=== PATIENT | female | born 1990 | race Caucasian/White ===

== ENCOUNTER 2019-11-17 02:45 | Observation (INO) ==
[2019-11-17] MEDS ORDERED: ONDANSETRON 4 MG/2 ML VIAL IV ONE (03:04)
[2019-11-17] MEDS ORDERED: SODIUM CHLORIDE 0.9% 1,000 ML IV STA (03:04)
[2019-11-17 04:01] LABS: Basophils # 0.1 10*3/uL (0.0-0.2); Basophils % 0.3 % (0.0-0.8); Eosinophils # 0.1 10*3/uL (0.0-0.87); Eosinophils % 0.4 % (0.00-10.9); Hematocrit 39.4 VOL% (35.7-47.0); Hemoglobin 12.6 GM/DL (12.0-16.0); Immature Granulocytes % 1.6 %; Immature Granulocytes Absolute 0.31 #; Lymphocytes # 4.7 10*3/uL (1.4-4.0); Lymphocytes % 24.6 % (21.3-54.2); Mean Corpuscular Volume 88.5 FL (87-102); Mean Platelet Volume 9.1 FL (9.6-12.0); Monocytes % 6.9 % (1.7-12.7); Neutrophils % 66.2 % (38.7-73.9); Platelet Count 324 T/CUMM (130-400); Red Blood Count 4.45 MC/CUMM (3.8-5.5); Red Cell Distribution Width 15.8 % (9.3-17.3); White Blood Count 19.1 T/CUMM (4-12)
[2019-11-17 04:23] LABS: Alanine Aminotransferase 22 U/L (13-56); Albumin 3.4 G/DL (3.4-5.0); Alkaline Phosphatase 70 U/L (45-117); Aspartate Amino Transferase 14 U/L (0-37); Bilirubin,Total < 0.39 MG/DL (0.2-1.0); Blood Urea Nitrogen 10 MG/DL (7-18); Calcium 8.6 MG/DL (8.5-10.1); Estimated Glom Filtration Rate 96 ML/MIN; Glucose 82 MG/DL (74-106); Osmolality,Calculated 265.2 MOS/KG (273-304); Total Protein 6.5 G/DL (6.4-8.3)
[2019-11-17] MEDS ORDERED: LORazepam 2 MG/1 ML VIAL ONE (04:40)
[2019-11-17] MEDS ORDERED: LORazepam 2 MG/1 ML VIAL IV STA (05:05)
[2019-11-17] MEDS ORDERED: ACETAMINOPHEN 500 MG TABLET PO STA (05:54)
[2019-11-17 06:39] LABS: Apearance,Urine CLEAR (Clear); Bilirubin,Urine Negative (Negative); Blood, Urine Negative (Negative); Glucose,Urine (UA) Negative (Negative); Ketones,Urine Negative (Negative); Mucus,Urine Occasional /LPF (Occasional); Nitrite,Urine Negative (Negative); Protein,Urine Negative; RBC,Urine <1 /HPF (0-4); Urine Color Yellow (Yellow); Urine Specific Gravity 1.016 (1.001-1.035); Urine Urobilinogen < 2.0 EU/DL (0.2-1.0); WBC,Urine 1 /HPF (0-6)
[2019-11-17] MEDS ORDERED: ONDANSETRON 4 MG/2 ML VIAL IV PRN (08:29)
[2019-11-17] MEDS ORDERED: LORazepam 2 MG/1 ML VIAL IV PRN (08:34)
[2019-11-17] MEDS ORDERED: PANTOPRAZOLE 40 MG TABLET PO SCH (09:00)
[2019-11-17] MEDS: DULoxetine 30 MG CAPSULE PO SCH (10:00)
[2019-11-17] MEDS: ENOXAPARIN 40 MG/0.4 ML SYRINGE SUBCUT SCH (10:00)
[2019-11-17] MEDS: lamoTRIgine 25 MG TABLET PO SCH (10:01)
[2019-11-17] MEDS: SUCRALFATE 1 GM TABLET PO SCH ×4 (10:01→20:06)
[2019-11-17] MEDS: FLUTICASONE 50 MCG NASAL SPRAY 16 GM BOTTLE BOTH NARES SCH (10:02)
[2019-11-17] MEDS: DOCUSATE SODIUM 100 MG CAPSULE PO SCH ×2 (10:02→20:06)
[2019-11-17] MEDS: SODIUM CHLORIDE 0.9% 1,000 ML IV SCH ×2 (10:02→17:09)
[2019-11-17] MEDS: DIVALPROEX 500 MG TABLET PO SCH ×3 (10:02→20:05)
[2019-11-17] MEDS ORDERED: ALBUTEROL 2.5 MG/3 ML NEB RESP TX PRN (13:00)
[2019-11-17] MEDS: PANTOPRAZOLE 40 MG TABLET PO SCH (20:06)
[2019-11-17] MEDS ORDERED: OLANZapine 5 MG TABLET PO SCH (21:00)
[2019-11-18] MEDS: SODIUM CHLORIDE 0.9% 1,000 ML IV SCH ×2 (00:15→04:25)
[2019-11-18] MEDS ORDERED: SODIUM CHLORIDE 0.9% 1,000 ML IV ONE (02:46)
[2019-11-18] MEDS ORDERED: SODIUM CHLORIDE 0.9% 1,000 ML IV SCH (03:00)
[2019-11-18 06:04] VITALS: BP 101/63
[2019-11-18 07:31] LABS: Alanine Aminotransferase 15 U/L (13-56); Albumin 2.4 G/DL (3.4-5.0); Alkaline Phosphatase 56 U/L (45-117); Aspartate Amino Transferase 9 U/L (0-37); Bilirubin,Total < 0.39 MG/DL (0.2-1.0); Blood Urea Nitrogen 13 MG/DL (7-18); Calcium 7.6 MG/DL (8.5-10.1); Estimated Glom Filtration Rate 131 ML/MIN; Glucose 84 MG/DL (74-106); Osmolality,Calculated 277.4 MOS/KG (273-304); Total Protein 4.6 G/DL (6.4-8.3)
[2019-11-18 08:04] LABS: Basophils % 0.4 % (0.0-0.8); Eosinophils # 0.1 10*3/uL (0.0-0.87); Eosinophils % 1.4 % (0.00-10.9); Hematocrit 34.7 VOL% (35.7-47.0); Hemoglobin 11.1 GM/DL (12.0-16.0); Immature Granulocytes % 1.2 %; Immature Granulocytes Absolute 0.11 #; Lymphocytes # 2.5 10*3/uL (1.4-4.0); Lymphocytes % 26.6 % (21.3-54.2); Mean Corpuscular Volume 89.7 FL (87-102); Mean Platelet Volume 9.2 FL (9.6-12.0); Monocytes % 5.2 % (1.7-12.7); Neutrophils % 65.2 % (38.7-73.9); Red Blood Count 3.87 MC/CUMM (3.8-5.5); Red Cell Distribution Width 15.6 % (9.3-17.3); White Blood Count 9.4 T/CUMM (4-12)
[2019-11-18 08:07] LABS: Platelet Count 233 T/CUMM (130-400)
[2019-11-18] MEDS: DOCUSATE SODIUM 100 MG CAPSULE PO SCH (08:40)
[2019-11-18] MEDS: SUCRALFATE 1 GM TABLET PO SCH ×2 (08:40→15:00)
[2019-11-18] MEDS: PANTOPRAZOLE 40 MG TABLET PO SCH (08:41)
[2019-11-18] MEDS: DULoxetine 30 MG CAPSULE PO SCH (08:41)
[2019-11-18] MEDS: DIVALPROEX 500 MG TABLET PO SCH (08:41)
[2019-11-18] MEDS: lamoTRIgine 25 MG TABLET PO SCH (08:41)
[2019-11-18] MEDS: FLUTICASONE 50 MCG NASAL SPRAY 16 GM BOTTLE BOTH NARES SCH (08:42)
[2019-11-18] MEDS: ENOXAPARIN 40 MG/0.4 ML SYRINGE SUBCUT SCH (08:42)
== END 2019-11-18 15:05 ==
LOC: N.ED 02:45 → N.EDINP 02:45 → N.ICU 08:58
PROVIDERS: ADMIT Internal Medicine; ATTEND Internal Medicine